=== PATIENT | male | born 2000 | race Caucasian/White ===

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

== ENCOUNTER 2018-02-22 21:52 | Emergency (ER) | payer SELFPAY ==
[2018-02-22 22:02] VITALS: BP 115/75; TEMP 98.2
[2018-02-22 23:02] LABS: EOS % 2.9 % (0-4.0); GRAN # 2.9 (1.4-6.5); GRAN % 46.3 % (42.2-75.2); HEMOGLOBIN 16.6 g/dl (12.5-16.1); LYMPH # 2.3 (1.2-3.4); LYMPH % 36.8 % (20.0-51.0); MEAN CELL VOLUME 81 fl (80.0-95.0); MEAN CORPUSCULAR HEMOGLOBIN 29 pg (26.0-32.0); MEAN CORPUSCULAR HGB CONC 35 g/dl (33.0-37.0); MEAN PLATELET VOLUME 10.4 fl (7.4-10.4); MONO % 12.7 % (1.7-9.3); PLATELET COUNT 199 K/mm3 (130-400); RED BLOOD COUNT 5.79 M/mm3 (4.20-5.60); REDCELL DISTRIBUTION WIDTH-CV 11.9 % (11.5-14.5)
[2018-02-22 23:03] LABS: BASO # 0.1 (0.0-0.2); EOS # 0.2 (0.0-0.7); MONO # 0.8 (0.1-0.6)
[2018-02-22 23:12] LABS: ALANINE AMINOTRANSFERASE 38 U/L (21-72); ALBUMIN 4.2 gm/dL (3.5-5.0); ALKALINE PHOSPHATASE 81 U/L (50-136); ANION GAP 12 mmol/L (7-16); AST,SGOT 27 U/L (15-37); BILIRUBIN,TOTAL 0.7 mg/dL (0.0-1.0); BLOOD UREA NITROGEN 18 mg/dL (9-20); CALCIUM 9.4 mg/dL (8.4-10.2); CARBON DIOXIDE 26 mmol/L (22-30); CHLORIDE 101 mmol/L (98-107); CREATININE, serum 1.04 mg/dL (0.66-1.25); GLUCOSE 91 mg/dL (74-106); POTASSIUM 4.3 mmol/L (3.4-5.0); SODIUM 139 mmol/L (137-145); TOTAL PROTEIN 7.8 gm/dL (6.4-8.2)
[2018-02-22 23:34] LABS: TROPONIN-I < 0.012 ng/mL (0.000-0.034)
[2018-02-23 00:15] VITALS: PULSE 84
== END 2018-02-23 00:15 | disposition home or self-care (01) ==
LOC: COL.ER 21:52
PROVIDERS: Nurse Practitioner
DX: R51 Headache (principal); R07.89 Other chest pain; R53.83 Other fatigue; F90.9 Attention-deficit hyperactivity disorder, unspecified type; F17.210 Nicotine dependence, cigarettes, uncomplicated; Z98.890 Other specified postprocedural states
CPT/HCPCS: J1200; J1885; J2765; J7030

== ENCOUNTER 2019-01-31 19:00 | Emergency (ER) | payer SELFPAY ==
[~2019-01-31] VITALS: Ht 172.7 cm; Wt 60.5 kg
[2019-01-31 19:10] VITALS: BP 143/75; TEMP 98.7
[2019-01-31 19:53] VITALS: PULSE 71
== END 2019-01-31 19:53 | disposition home or self-care (01) ==
LOC: COL.ER 19:00
DX: M79.644 Pain in right finger(s) (principal); F90.9 Attention-deficit hyperactivity disorder, unspecified type; F17.210 Nicotine dependence, cigarettes, uncomplicated; F12.90 Cannabis use, unspecified, uncomplicated

== ENCOUNTER 2019-05-22 21:29 | Emergency (ER) | payer SELFPAY ==
[~2019-05-22] VITALS: Ht 165.1 cm; Wt 63.6 kg
[2019-05-22 21:36] VITALS: BP 124/81; TEMP 97.8
[2019-05-22 23:20] VITALS: PULSE 80
== END 2019-05-22 23:20 | disposition home or self-care (01) ==
LOC: COL.ER 21:29
DX: M13.832 Other specified arthritis, left wrist (principal)
CPT/HCPCS: J1885

== ENCOUNTER 2019-11-10 14:46 | Emergency (ER) | payer SELFPAY ==
[~2019-11-10] VITALS: Ht 170.2 cm; Wt 68.2 kg
[2019-11-10 14:50] VITALS: BP 128/93; TEMP 97.3
[2019-11-10] MEDS ORDERED: CEPHALEXIN500 M1 PO (16:27)
[2019-11-10] MEDS ORDERED: NORCO 325 MG-51 TAB PO (16:27)
[2019-11-10 17:00] VITALS: PULSE 68
== END 2019-11-10 17:00 | disposition home or self-care (01) ==
LOC: COL.ER 14:46
DX: S62.612A Displaced fracture of proximal phalanx of right middle finger, initial encounter for closed fracture (principal); S62.634A Displaced fracture of distal phalanx of right ring finger, initial encounter for closed fracture; S61.212A Laceration without foreign body of right middle finger without damage to nail, initial encounter; F17.210 Nicotine dependence, cigarettes, uncomplicated; W23.0XXA Caught, crushed, jammed, or pinched between moving objects, initial encounter; Y92.009 Unspecified place in unspecified non-institutional (private) residence as the place of occurrence of the external cause
CPT/HCPCS: J0690; J2060; J3010

== ENCOUNTER 2019-11-15 10:26 | Day surgery (SDC) | payer SELFPAY ==
[~2019-11-15] VITALS: Ht 180.3 cm; Wt 72.1 kg
[2019-11-15] VITALS (8 sets, daily range): BP systolic 122–132; BP diastolic 59–83; PULSE 47–60; TEMP 95–97.4
[~2019-11-15 10:26] MED LIST changes: +CEPHALEXIN500 M1 PO; +NORCO 325 MG-51 TAB PO
[2019-11-15] MEDS ORDERED: CEPHALEXIN500 M1 PO (11:06)
[2019-11-15] MEDS ORDERED: NORCO 325 MG-51 TAB PO (11:06)
[2019-11-15] MEDS ORDERED: TYLENOL 500MG500 MG PO (11:07)
--- NOTE | 2019-11-15 11:07 | NUR ---
TO RM AT 1030- CALL LIGHT IN REACH MOTHER AND GIRLFRIEND AT BEDSIDE
--- NOTE | 2019-11-15 19:58 | NUR ---
Pt arrived to room via cart from post-op at 1620, whole body shivering, verbalized needing to urinate, unable to go using urinal, assisted to BR to sit to void, returned to bed, alarm on, call lt in reach. Mom and sig o arrived with food and soda from [email or web address], pt able to grady sips of drink, edu visitors to have pt eat slowly. Vitals stable, heart rate jaspreet, sling to RUE and dressing and splint intact. Pt expressed desire to be discharged home. Much more alert upon discharge, pt dressed with assist, amb indep in room, talkative. Printed pt health summary, discharge summary and home med list and reviewed with pt, mom, and sig o. Printed [facility] provided with folder. Stressed importance of f/u appt with ortho. Reviewed instructions per ortho re: dressing and showering. Belongings gathered by pt/visitors. Pt escourted by VICTOR HUGO Henderson to private vehicle for ride home. Pt and mom denied questions.
== END 2019-11-15 18:35 | disposition home or self-care (01) ==
LOC: SDCO 10:26 → SURG 17:41 → SDCO 18:35
DX: S62.624A Displaced fracture of middle phalanx of right ring finger, initial encounter for closed fracture (principal); S62.612A Displaced fracture of proximal phalanx of right middle finger, initial encounter for closed fracture; G89.18 Other acute postprocedural pain; W20.8XXA Other cause of strike by thrown, projected or falling object, initial encounter
CPT/HCPCS: OP; J1100; J1885; J2250; J2405; J2704; J3010; J7120

== ENCOUNTER 2020-03-07 17:53 | Emergency (ER) | payer SELFPAY ==
[~2020-03-07] VITALS: Ht 170.2 cm; Wt 65.9 kg
[~2020-03-07 17:53] MED LIST changes: +TYLENOL 500MG500 MG PO
[2020-03-07 17:58] VITALS: TEMP 97
[2020-03-07 18:24] LABS: BASO % 0.6 % (0.0-2.0); EOS # 0.2 (0.0-0.7); EOS % 3.2 % (0-4.0); GRAN # 2.9 (1.4-6.5); GRAN % 47.2 % (42.2-75.2); HEMOGLOBIN 15.9 g/dl (13.5-18.0); LYMPH # 2.3 (1.2-3.4); MEAN CELL VOLUME 83 fl (80.0-100.0); MEAN CORPUSCULAR HEMOGLOBIN 29 pg (27.0-31.0); MEAN CORPUSCULAR HGB CONC 35 g/dl (33.0-37.0); MEAN PLATELET VOLUME 10.5 fl (7.4-10.4); MONO # 0.7 (0.1-0.6); MONO % 10.7 % (1.7-9.3); PLATELET COUNT 185 K/mm3 (130-400); RED BLOOD COUNT 5.53 M/mm3 (4.20-5.60); REDCELL DISTRIBUTION WIDTH-CV 11.8 % (11.5-14.5)
[2020-03-07 18:36] LABS: ALANINE AMINOTRANSFERASE 17 U/L (4-49); ALBUMIN 4.4 gm/dL (3.5-5.0); ALKALINE PHOSPHATASE 88 U/L (50-136); ANION GAP 8 mmol/L (7-16); AST,SGOT 26 U/L (15-37); BILIRUBIN,TOTAL 0.7 mg/dL (0.0-1.0); BLOOD UREA NITROGEN 11 mg/dL (9-20); CALCIUM 9.3 mg/dL (8.4-10.2); CARBON DIOXIDE 25 mmol/L (22-30); CHLORIDE 105 mmol/L (98-107); CREATININE, serum 1.01 (0.66-1.25); GLUCOSE 96 mg/dL (74-106); POTASSIUM 4.2 mmol/L (3.4-5.0); SODIUM 138 mmol/L (137-145); TOTAL PROTEIN 7.6 gm/dL (6.4-8.2)
[2020-03-07 18:46] LABS: C-REACTIVE PROTEIN < 0.5 mg/dL (0.0-0.9)
[2020-03-07 19:12] VITALS: BP 118/65; PULSE 59
== END 2020-03-07 19:11 | disposition home or self-care (01) ==
LOC: COL.ER 17:53
PROVIDERS: Family Medicine
DX: R53.1 Weakness (principal); R53.81 Other malaise
CPT/HCPCS: J7120